=== PATIENT | male | born 1960 | race Caucasian/White ===

== ENCOUNTER 2023-01-01 10:28 | Outpatient (CLI) | payer OTHER, SELFPAY | END 2023-01-01 10:29 | disposition home or self-care (01) | PROVIDERS: PCP Family Medicine; Visit Provider Physician Assistant Medical | DX: Z00.00 Encounter for general adult medical examination without abnormal findings (principal); C69.90 Malignant neoplasm of unspecified site of unspecified eye; K86.2 Cyst of pancreas; Z13.6 Encounter for screening for cardiovascular disorders; Z12.5 Encounter for screening for malignant neoplasm of prostate; Z13.29 Encounter for screening for other suspected endocrine disorder | CPT/HCPCS: 80053; 80061; 80076; 84153; 84403; 84443 ==

== ENCOUNTER 2024-08-07 03:24 | Outpatient (CLI) | payer OTHER, SELFPAY | END 2024-08-07 03:25 | disposition home or self-care (01) | LOC: NFLDREF 08-08 00:15 | PROVIDERS: PCP Physician Assistant Medical; Referring Provider Physician Assistant Medical; Visit Provider Physician Assistant Medical | DX: Z00.00 Encounter for general adult medical examination without abnormal findings (principal); C69.90 Malignant neoplasm of unspecified site of unspecified eye; K86.2 Cyst of pancreas; Z12.5 Encounter for screening for malignant neoplasm of prostate | CPT/HCPCS: 80053; 80061; 84403; 84443; G0103 ==

== ENCOUNTER 2024-08-18 07:12 | Outpatient (CLI) | payer OTHER, SELFPAY ==
--- NOTE | 2024-08-18 07:15 | CRLHL7_ITS ---
For Patients: As a result of the 21st Century Cures Act, medical imaging exams and procedure reports are released immediately into your electronic medical record. You may view this report before your referring provider. If you have questions, please contact your health care provider. INDICATION: Follow-up pancreatic cyst TECHNIQUE: 1.5 T MRI of the abdomen was performed with pre and postcontrast T1 weighted imaging; T2 weighted imaging; diffusion weighted imaging; in and out of phase imaging. 18 mL Dotarem administered COMPARISON: Abdominal MRI 07/04/2021 FINDINGS: Lungs: The lung bases are clear. No pleural or pericardial effusion. Liver: Homogeneous liver parenchyma. No hepatic masses. No hepatic steatosis. Biliary tree and gallbladder: No intra or extrahepatic biliary dilation. Fluid-filled gallbladder without stones. Spleen: Unremarkable Pancreas: Normal pancreatic parenchyma. No pancreatic masses. No pancreatic duct dilation. A T2 hyperintense cystic lesion in the tail of the pancreas measures 4 mm, previously measuring 4 mm on MRI from 07/04/2021, although it is decreased in conspicuity on today`s exam. No suspicious enhancement is appreciated. Adrenal glands: Unremarkable. Kidneys and ureters: No renal masses or hydronephrosis. Similar left renal cyst. GI tract: No evidence of obstruction or inflammation. Vasculature: The IVC and aorta are patent. No abdominal aortic aneurysm. Circumaortic left renal vein, a normal variant. Lymph nodes: No lymphadenopathy. Abdominal wall: Unremarkable Bones: Degenerative change of the imaged spine. IMPRESSION: 1. A 4 mm cystic lesion in the tail of the pancreas is stable compared to prior study, and possibly represents a side-branch IPMN. No suspicious or worrisome features are appreciated. Consider follow up per 2017 ACR white paper recommendations. Management of Incidental Pancreatic Cysts: A White Paper of the ACR Incidental Findings Committee. Journal of the [employer]. Volume 14, Number 7, April 2017, pg. [phone]. Dictated by Sara Jiang MD @ 08/20/2024 4:56:21 PM (Electronically Signed)
== END 2024-08-18 07:13 | disposition home or self-care (01) ==
LOC: MRI 07:13
PROVIDERS: PCP Physician Assistant Medical; Visit Provider Physician Assistant Medical
DX: K86.2 Cyst of pancreas (principal)
CPT/HCPCS: 74183; A9575